=== PATIENT | female | born 1990 | race Caucasian/White ===

== ENCOUNTER 2017-09-24 23:01 | Emergency (ER) | payer BC ==
[~2017-09-24] VITALS: Ht 160 cm; Wt 48.2 kg
[2017-09-24 23:10] VITALS: TEMP 97.1
[2017-09-24 23:55] LABS: ALBUMIN 4.3 gm/dL (3.5-5.0); BILIRUBIN,TOTAL 0.9 mg/dL (0.0-1.0); CALCIUM 9.1 mg/dL (8.4-10.2); CREATININE, serum 0.69 mg/dL (0.52-1.25); POTASSIUM 3.5 mmol/L (3.4-5.0); TOTAL PROTEIN 8.6 gm/dL (6.4-8.2)
[2017-09-24 23:58] LABS: MEAN CELL VOLUME 87 fl (80.0-100.0); MEAN CORPUSCULAR HEMOGLOBIN 30 pg (27.0-31.0); MEAN CORPUSCULAR HGB CONC 35 g/dl (33.0-37.0); MEAN PLATELET VOLUME 10.6 fl (7.4-10.4); PLATELET COUNT 184 K/mm3 (130-400); RED BLOOD COUNT 4.62 M/mm3 (4.10-5.30); REDCELL DISTRIBUTION WIDTH-CV 11.9 % (11.5-14.5)
[2017-09-25] MEDS ORDERED: ZOFRAN ODT4 MG PO (00:01)
[2017-09-25 00:51] LABS: BAND 23 % (0-10); METAMYELOCYTE 1 % (0-0)
[2017-09-25 00:54] LABS: NEUTROPHILS 34 % (42.0-75.2)
[2017-09-25 00:55] LABS: LYMPHOCYTE 30 % (20.0-51.0)
[2017-09-25 00:56] LABS: PLATELET ESTIMATE NORMAL (NORMAL)
[2017-09-25 01:08] VITALS: BP 107/66; PULSE 90
[2017-09-25 08:23] LABS: PATHOLOGY DIFF REVIEW OK
== END 2017-09-25 02:00 | disposition home or self-care (01) ==
LOC: COL.ER 23:01
PROVIDERS: Physician Assistant
DX: R11.2 Nausea with vomiting, unspecified (principal); R55 Syncope and collapse; R19.7 Diarrhea, unspecified
CPT/HCPCS: J2405; J7030

== ENCOUNTER 2020-08-13 22:59 | Emergency (ER) | payer BC ==
[~2020-08-13] VITALS: Ht 160 cm; Wt 52.3 kg
[~2020-08-13 22:59] MED LIST: ZOFRAN ODT4 MG PO
[2020-08-13 23:40] VITALS: TEMP 98.6
[2020-08-14 00:08] LABS: MUCOUS Present /lpf; PH 5 (5-8); SQUAMOUS EPITHELIAL 0-2 /hpf; URINE APPEARANCE Clear; URINE BACTERIA Rare /hpf; URINE BILIRUBIN Negative (NEGATIVE); URINE BLOOD 2+ (NEGATIVE); URINE COLOR Yellow; URINE GLUCOSE Negative (NEGATIVE); URINE KETONE 1+ (NEGATIVE); URINE LEUKOCYTE ESTERASE Negative (NEGATIVE); URINE NITRATE Negative (NEGATIVE); URINE PROTEIN(semi-quant) Negative (NEGATIVE); URINE RBC 0-2 /hpf
[2020-08-14 00:16] LABS: COLLECTION METHOD CLEAN CATCH
[2020-08-14 00:39] LABS: BASO % 0.3 % (0.0-2.0); GRAN # 6.3 (1.4-6.5); GRAN % 87.9 % (42.2-75.2); HEMATOCRIT 40.3 % (37.0-47.0); HEMOGLOBIN 13.4 g/dl (12.5-16.0); LYMPH # 0.2 (1.2-3.4); LYMPH % 3.4 % (20.0-51.0); MEAN CELL VOLUME 92 fl (80.0-100.0); MEAN CORPUSCULAR HEMOGLOBIN 31 pg (27.0-31.0); MEAN CORPUSCULAR HGB CONC 33 g/dl (33.0-37.0); MEAN PLATELET VOLUME 10.6 fl (7.4-10.4); MONO # 0.6 (0.1-0.6); MONO % 8.1 % (1.7-9.3); PLATELET COUNT 186 K/mm3 (130-400); RED BLOOD COUNT 4.39 M/mm3 (4.10-5.30); REDCELL DISTRIBUTION WIDTH-CV 11.8 % (11.5-14.5)
[2020-08-14 00:53] LABS: CREATININE, serum 0.63 (0.52-1.25); POTASSIUM 3.7 mmol/L (3.4-5.0)
[2020-08-14] MEDS ORDERED: ZOFRAN ODT4 MG PO (01:10)
[2020-08-14 02:47] VITALS: BP 109/71; PULSE 81
== END 2020-08-14 02:47 | disposition home or self-care (01) ==
LOC: COL.ER 22:59
PROVIDERS: Emergency Medicine
DX: R11.2 Nausea with vomiting, unspecified (principal); R19.7 Diarrhea, unspecified; E86.0 Dehydration; R55 Syncope and collapse; Z88.2 Allergy status to sulfonamides
CPT/HCPCS: J2405; J7030